=== PATIENT | female | born 1950 | race Caucasian/White ===

== ENCOUNTER 2016-07-26 11:54 | Emergency (ER) | payer MEDICARE, MEDICAID ==
[~2016-07-26] VITALS: Ht 165.1 cm; Wt 81.6 kg
[~2016-07-26 11:54] MED LIST: ALLO100T PO; ATOR20TA PO; ESOM40CA PO; FLUO20CA36 PO; HYDR-3326 PO; HYDR-507 PO; THYROID PO
--- NOTE | 2016-07-26 13:43 | NUR ---
MSE COMPLETED, PT D/C'D HOME, ACI/RX X1/CD COPY OF XRAYS GIVEN. PT GOT DRESSED AMBULATED W/O DIFF WITH KNEE IMMOBILIZOR ON, TOOK ALL BELONGINGS. SON PRESENT AND TO DRIVE.
[2016-07-26 13:46] VITALS: BP 125/74
== END 2016-07-26 13:46 | disposition home or self-care (01) ==
LOC: ER 11:54
DX: M23.92 Unspecified internal derangement of left knee (principal); F32.9 Major depressive disorder, single episode, unspecified; K21.9 Gastro-esophageal reflux disease without esophagitis; M19.90 Unspecified osteoarthritis, unspecified site; M10.9 Gout, unspecified
CPT/HCPCS: 29505; 73562; 93971; 99284; A4663

== ENCOUNTER 2018-01-19 15:01 | Emergency (ER) | payer MEDICARE, MEDICAID ==
[~2018-01-19] VITALS: Ht 160 cm; Wt 83.5 kg
[2018-01-19] MEDS ORDERED: predniSONE 10 MG TABLET ONE (16:10)
[2018-01-19] MEDS ORDERED: predniSONE 50 MG TABLET ONE (16:11)
[2018-01-19] MEDS ORDERED: diphenhydrAMINE 50 MG CAPSULE ONE (16:11)
[2018-01-19] MEDS ORDERED: predniSONE 20 MG TABLET PO ONE (16:15)
[2018-01-19] MEDS ORDERED: diphenhydrAMINE 50 MG CAPSULE PO ONE (16:15)
[2018-01-19 16:22] VITALS: BP 129/77
--- NOTE | 2018-01-19 16:22 | NUR ---
Patient discharged to home in stable conditon. Written and verbal after care instructions given. Patient verbalizes understanding of instructions.
== END 2018-01-19 16:23 | disposition home or self-care (01) ==
LOC: ER 15:03
DX: L50.9 Urticaria, unspecified (principal); K21.9 Gastro-esophageal reflux disease without esophagitis
CPT/HCPCS: A4663; J7512; Q0163